=== PATIENT | female | born 1960 | race Asian ===

== ENCOUNTER 2017-02-01 19:34 | Emergency (ER) | payer SELFPAY ==
[~2017-02-01] VITALS: Ht 154.9 cm; Wt 59.0 kg
[~2017-02-01 19:34] MED LIST: "\\\"CHOLESTEROL MED\\\""; GEMFIBROZIL600 MG PO; METFORMIN HCL500 M2 PO; METFORMIN HCL500 MG PO; NORCO 5-325 TA1 EACH PO; PRAVASTATIN SOD10 MG PO
[2017-02-01] MEDS ORDERED: ZOFRAN ODT4 MG PO (21:23)
== END 2017-02-01 21:33 | disposition home or self-care (01) ==
LOC: ED 19:34
DX: K52.9 Noninfective gastroenteritis and colitis, unspecified (principal); E11.9 Type 2 diabetes mellitus without complications; Z79.84 Long term (current) use of oral hypoglycemic drugs; Z79.899 Other long term (current) drug therapy
CPT/HCPCS: 80053; 81001; 84703; 85025; 96374; 99283; J2405; J7040

== ENCOUNTER 2017-10-21 14:51 | Emergency (ER) | payer OTHER ==
[~2017-10-21] VITALS: Ht 154.9 cm; Wt 59.0 kg
[~2017-10-21 14:51] MED LIST changes: +ZOFRAN ODT4 MG PO
[2017-10-21] MEDS ORDERED: LIPITOR10 MG (15:06)
[2017-10-21] MEDS ORDERED: ZOFRAN ODT4 MG PO (17:10)
[2017-10-21] MEDS ORDERED: MECLIZINE HCL25 MG PO (17:10)
== END 2017-10-21 17:43 | disposition home or self-care (01) ==
LOC: ED 14:51
DX: R42 Dizziness and giddiness (principal); E11.9 Type 2 diabetes mellitus without complications; Z79.899 Other long term (current) drug therapy
CPT/HCPCS: 70450; 80053; 81001; 85025; 85651; 96361; 96374; 96375; 99284; J1885; J2405; J7040